=== PATIENT | female | born 1985 | race Caucasian/White ===

== ENCOUNTER 2016-07-29 13:29 | Inpatient (IN) | payer MEDICAID ==
[~2016-07-29] VITALS: Ht 172.7 cm; Wt 102.0 kg
[2016-07-29] MEDS ORDERED: PANTOPRAZOLE SODIUM 40 MG/10 ML VIAL IV STA (13:53)
[2016-07-29] MEDS ORDERED: SODIUM CHLORIDE 0.9% 1,000 ML IVB ONE (13:53)
[2016-07-29] MEDS ORDERED: HYDROmorphone HCL 2 MG/ML VL IV ONE ×2 (14:00→16:30)
[2016-07-29] MEDS ORDERED: ONDANSETRON HCL 4 MG/2 ML VIAL IV ONE ×2 (14:00→16:30)
[2016-07-29 14:33] LABS: Basophils # (auto) 0 uL; Basophils % (auto) 0.3 % (0.0-2.0); Eosinophils # (auto) 0.1 uL; Eosinophils % (auto) 0.7 % (0.0-7.0); Hematocrit 39.8 % (36.0-46.0); Hemoglobin 13.3 g/dL (12.2-16.2); Lymphocytes # (auto) 1.9 uL; Lymphocytes % (auto) 25.9 % (10.0-50.0); Mean Corpuscular Hemoglobin 29.2 pg (28.0-32.0); Mean Corpuscular Hgb Conc. 33.5 g/dL (32.0-36.0); Mean Corpuscular Volume 87.3 fL (80.0-100.0); Mean Platelet Volume 7.1 fL (7.4-10.4); Monocytes # (auto) 0.4 uL; Monocytes % (auto) 5.2 % (0.0-12.0); Neutrophils # (auto) 5.1 uL; Neutrophils % (auto) 67.9 % (37.0-80.0); Platelet Count (auto) 331 10^3/uL (140-450); Red Cell Distribution Width 14.1 % (11.6-16.0); White Blood Cell 7.5 10^3/uL (4.4-10.8)
[2016-07-29 14:59] LABS: Albumin 3.9 g/dL (3.4-5.0); BUN/Creatinine Ratio 15.3; Bilirubin, Total 0.1 mg/dL (0.2-1.0); Calcium 8.7 mg/dL (8.5-10.1); Potassium 4.1 mmol/L (3.5-5.1); Total Protein 7.8 g/dL (6.4-8.2)
[2016-07-29] MEDS: SODIUM CHLORIDE 0.9% 1,000 ML IV SCH (17:24)
[2016-07-29] MEDS ORDERED: FAMOTIDINE (10MG/ML) 2ML VL IV ONE (17:30)
[2016-07-29 17:46] LABS: INR 0.99 (0.9-1.15); Prothrombin Time 10.7 sec (9.37-12.3)
[2016-07-29] MEDS: FAMOTIDINE (10MG/ML) 2ML VL IV SCH (19:00)
[2016-07-29 19:16] LABS: Urine Bilirubin Negative (Negative); Urine Blood Negative /uL (Negative); Urine Color Yellow (Yellow); Urine Glucose Normal (Normal); Urine Ketone Negative (Negative); Urine Mucus FEW (None Seen); Urine Nitrite Negative (Negative); Urine RBC <1 /hpf (0 - 4); Urine Squamous Epithelial Cell FEW /hpf (<5); Urine Urobilinogen Normal (Negative)
[2016-07-29] MEDS: MORPHINE SULF INJ 2 MG/ML SYRINGE 1ML IV PRN ×2 (20:18→23:32)
[2016-07-29 22:00] VITALS: BP 110/68
[2016-07-30] MEDS: SODIUM CHLORIDE 0.9% 1,000 ML IV SCH ×3 (01:07→18:24)
[2016-07-30] MEDS: MORPHINE SULF INJ 2 MG/ML SYRINGE 1ML IV PRN ×5 (03:51→22:02)
[2016-07-30] MEDS: ONDANSETRON HCL 4 MG/2 ML VIAL IV PRN ×3 (03:51→13:28)
[2016-07-30 04:48] LABS: Basophils # (auto) 0 uL; Basophils % (auto) 0.4 % (0.0-2.0); Eosinophils # (auto) 0.1 uL; Eosinophils % (auto) 0.6 % (0.0-7.0); Hematocrit 36.7 % (36.0-46.0); Lymphocytes # (auto) 3.1 uL; Lymphocytes % (auto) 36.3 % (10.0-50.0); Mean Corpuscular Hemoglobin 29.2 pg (28.0-32.0); Mean Corpuscular Hgb Conc. 32.8 g/dL (32.0-36.0); Mean Corpuscular Volume 89.2 fL (80.0-100.0); Mean Platelet Volume 7.4 fL (7.4-10.4); Monocytes # (auto) 0.6 uL; Neutrophils # (auto) 4.8 uL; Neutrophils % (auto) 55.7 % (37.0-80.0); Platelet Count (auto) 299 10^3/uL (140-450); Red Cell Distribution Width 13.9 % (11.6-16.0); White Blood Cell 8.6 10^3/uL (4.4-10.8)
[2016-07-30 04:54] VITALS: BP 111/56
[2016-07-30 05:16] LABS: Albumin 3.5 g/dL (3.4-5.0); BUN/Creatinine Ratio 9.8; Bilirubin, Total 0.3 mg/dL (0.2-1.0); Calcium 7.7 mg/dL (8.5-10.1); Potassium 3.7 mmol/L (3.5-5.1); Total Protein 6.5 g/dL (6.4-8.2)
[2016-07-30] MEDS: FAMOTIDINE (10MG/ML) 2ML VL IV SCH ×2 (06:35→17:47)
[2016-07-30 09:08] VITALS: BP 105/57
[2016-07-30 13:00] VITALS: BP 97/54
[2016-07-30 17:00] VITALS: BP 91/50
[2016-07-30 22:00] VITALS: BP 108/72
[2016-07-30] MEDS ORDERED: TEMAZEPAM 15 MG CAP PO ONE (23:15)
[2016-07-31] MEDS: SODIUM CHLORIDE 0.9% 1,000 ML IV SCH ×3 (01:43→18:36)
[2016-07-31 05:03] VITALS: BP 104/69
[2016-07-31] MEDS: FAMOTIDINE (10MG/ML) 2ML VL IV SCH ×2 (06:32→18:35)
[2016-07-31] MEDS: MORPHINE SULF INJ 2 MG/ML SYRINGE 1ML IV PRN (06:32)
[2016-07-31 06:41] LABS: Basophils # (auto) 0 uL; Basophils % (auto) 0.6 % (0.0-2.0); Eosinophils # (auto) 0.1 uL; Eosinophils % (auto) 1.1 % (0.0-7.0); Hematocrit 36.8 % (36.0-46.0); Hemoglobin 12.3 g/dL (12.2-16.2); Lymphocytes # (auto) 2.9 uL; Lymphocytes % (auto) 49.7 % (10.0-50.0); Mean Corpuscular Hemoglobin 29.6 pg (28.0-32.0); Mean Corpuscular Hgb Conc. 33.4 g/dL (32.0-36.0); Mean Corpuscular Volume 88.6 fL (80.0-100.0); Mean Platelet Volume 7.5 fL (7.4-10.4); Monocytes # (auto) 0.5 uL; Monocytes % (auto) 7.7 % (0.0-12.0); Neutrophils # (auto) 2.4 uL; Neutrophils % (auto) 40.9 % (37.0-80.0); Platelet Count (auto) 243 10^3/uL (140-450); Red Cell Distribution Width 12.9 % (11.6-16.0); White Blood Cell 5.9 10^3/uL (4.4-10.8)
[2016-07-31 06:51] LABS: Potassium 3.5 mmol/L (3.5-5.1)
[2016-07-31 06:59] LABS: Albumin 3.4 g/dL (3.4-5.0); BUN/Creatinine Ratio 6.7; Calcium 7.5 mg/dL (8.5-10.1); Magnesium 1.9 mg/dL (1.6-2.6)
[2016-07-31 07:17] LABS: Bilirubin, Total 0.3 mg/dL (0.2-1.0); Total Protein 6.2 g/dL (6.4-8.2)
[2016-07-31] MEDS ORDERED: NEOSTIGMINE 1 MG/ML INJ (10mg/10ML VIAL) ONE (07:42)
[2016-07-31] MEDS ORDERED: ROCURONIUM 10MG/ML 10ML VIAL IV ONE (07:42)
[2016-07-31] MEDS ORDERED: MIDAZOLAM HCL 1MG/1ML-2 ML VIAL ONE (07:42)
[2016-07-31] MEDS ORDERED: fentaNYL CITRATE 100 MCG/2 ML VL ONE (07:42)
[2016-07-31] MEDS ORDERED: KETOROLAC TROMETH 60MG/2ML VIAL IM ONE (07:42)
[2016-07-31] MEDS ORDERED: SODIUM CHLORIDE LOCK 20 ML ONE (07:42)
[2016-07-31] MEDS ORDERED: GLYCOPYRROLATE 0.2 MG/ML 1ML VIAL ONE (07:42)
[2016-07-31] MEDS ORDERED: MEPERIDINE HCL (50 MG/ML) 1 ML VIAL ONE (07:42)
[2016-07-31 07:50] VITALS: BP 127/70
[2016-07-31] MEDS ORDERED: KETOROLAC TROMETH 30 MG/ML 1ML VIAL IV ONE (09:00)
[2016-07-31] MEDS ORDERED: METOCLOPRAMIDE HCL 5MG/ml INJ 2ml VIAL IV ONE (09:00)
[2016-07-31] MEDS: HYDROmorphone HCL 2 MG/ML VL IV PRN ×6 (09:38→21:37)
[2016-07-31] MEDS ORDERED: ceFAZolin 1GM/50ML D5W 50 ML IV SCH (10:00)
[2016-07-31] MEDS: ceFAZolin 1GM/50ML D5W 50 ML IV SCH ×2 (12:30→20:20)
[2016-07-31 13:16] VITALS: BP 112/70
[2016-07-31 17:03] VITALS: BP 114/73
[2016-07-31 21:50] VITALS: BP 124/72
[2016-08-01] MEDS: HYDROmorphone HCL 2 MG/ML VL IV PRN ×6 (01:53→22:03)
[2016-08-01] MEDS: ceFAZolin 1GM/50ML D5W 50 ML IV SCH ×3 (04:40→20:30)
[2016-08-01] MEDS: SODIUM CHLORIDE 0.9% 1,000 ML IV SCH ×2 (04:43→17:30)
[2016-08-01 04:45] VITALS: BP 115/71
[2016-08-01 06:30] LABS: Hematocrit 36.6 % (36.0-46.0)
[2016-08-01] MEDS: FAMOTIDINE (10MG/ML) 2ML VL IV SCH ×2 (06:34→18:43)
[2016-08-01] MEDS: ONDANSETRON HCL 4 MG/2 ML VIAL IV PRN ×2 (06:40→20:36)
[2016-08-01 08:48] VITALS: BP 115/65
[2016-08-01] MEDS ORDERED: TEMAZEPAM 15 MG CAP PO PRN (12:30)
[2016-08-01 12:51] VITALS: BP 114/65
[2016-08-01 16:37] VITALS: BP 108/66
[2016-08-01 20:15] VITALS: BP 108/63
[2016-08-01 22:00] VITALS: BP 108/63
[2016-08-02] MEDS: ONDANSETRON HCL 4 MG/2 ML VIAL IV PRN ×3 (03:45→14:16)
[2016-08-02] MEDS: HYDROmorphone HCL 2 MG/ML VL IV PRN ×4 (03:45→20:37)
[2016-08-02] MEDS: ceFAZolin 1GM/50ML D5W 50 ML IV SCH ×3 (04:09→20:38)
[2016-08-02] MEDS: SODIUM CHLORIDE 0.9% 1,000 ML IV SCH ×3 (04:10→23:24)
[2016-08-02 05:00] VITALS: BP 105/63
[2016-08-02] MEDS: FAMOTIDINE (10MG/ML) 2ML VL IV SCH ×2 (06:29→20:38)
[2016-08-02 08:15] VITALS: BP 114/76
[2016-08-02 08:45] VITALS: BP 114/76
[2016-08-02 13:07] VITALS: BP 128/74
[2016-08-02] MEDS ORDERED: MAGNESIUM SULFATE 1GM/100ML 100 ML IV ONE (13:30)
[2016-08-02 16:45] VITALS: BP 127/75
[2016-08-02] MEDS ORDERED: ONDANSETRON ODT 4 MG TAB PO PRN (20:00)
[2016-08-02] MEDS ORDERED: HYDROcodone-ACET 10/325MG TAB PO PRN (20:00)
[2016-08-02 22:00] VITALS: BP 113/70
[2016-08-03] MEDS: ceFAZolin 1GM/50ML D5W 50 ML IV SCH ×2 (03:59→12:00)
[2016-08-03 05:30] VITALS: BP 111/71
[2016-08-03] MEDS: FAMOTIDINE (10MG/ML) 2ML VL IV SCH (06:16)
[2016-08-03] MEDS: HYDROmorphone HCL 2 MG/ML VL IV PRN (06:16)
[2016-08-03 08:00] VITALS: BP 117/76
[2016-08-03 08:56] VITALS: BP 117/76
[2016-08-03] MEDS: SODIUM CHLORIDE 0.9% 1,000 ML IV SCH (10:11)
[2016-08-03 13:07] VITALS: BP 116/76
== END 2016-08-03 13:40 | disposition home or self-care (01) | DRG 263 ==
LOC: ER 13:29 → TELE 13:30 → CENTRAL 20:25
PROVIDERS: ADMIT Internal Medicine; ATTEND Internal Medicine
PROC: 0FT44ZZ Resection of Gallbladder, Percutaneous Endoscopic Approach (ICD-10-PCS; principal; 2016-07-31 08:23)
DX: K80.00 Calculus of gallbladder with acute cholecystitis without obstruction (principal); K76.0 Fatty (change of) liver, not elsewhere classified; Z90.49 Acquired absence of other specified parts of digestive tract; F12.90 Cannabis use, unspecified, uncomplicated; Z82.49 Family history of ischemic heart disease and other diseases of the circulatory system; F32.9 Major depressive disorder, single episode, unspecified; F41.9 Anxiety disorder, unspecified; E66.9 Obesity, unspecified; Z68.34 Body mass index [BMI] 34.0-34.9, adult; K80.10 Calculus of gallbladder with chronic cholecystitis without obstruction
CPT/HCPCS: 36415; 76705; 80053; 81001; 82150; 82247; 83690; 83735; 84702; 85014; 85018; 85025; 85610; 86850; 86900; 86901; 94761; 96361; 96374; 96375; 96376; C9113; J0690; J1885; J2250; J2405; J3490